=== PATIENT | female | born 1955 | race Caucasian/White ===

== ENCOUNTER 2017-02-07 03:40 | Inpatient (IN) | payer OTHER ==
[~2017-02-07] VITALS: Ht 165.1 cm; Wt 82.7 kg
[2017-02-07] VITALS (7 sets, daily range): BP systolic 115–123; BP diastolic 73–81; PULSE 74–111; RESP 18; TEMP 98; Ht 165.1 cm; Wt 82.7 kg
[2017-02-07] MEDS ORDERED: ONDANSETRON 4 MG INJ IV STA (04:10)
[2017-02-07] MEDS ORDERED: SOD CHLORIDE 0.9% 1,000 ML IV STA (04:10)
[2017-02-07] MEDS ORDERED: morphine 2 MG INJ IV STA (04:10)
[2017-02-07] MEDS ORDERED: SOTA80TA PO (04:25)
[2017-02-07] MEDS ORDERED: SOTA120T PO (04:25)
[2017-02-07] MEDS ORDERED: LISI10TA2 PO (04:27)
[2017-02-07] MEDS ORDERED: APIX5TAB PO (04:27)
[2017-02-07] MEDS ORDERED: FLUO10TA PO ×2 (04:28→04:31)
[2017-02-07] MEDS ORDERED: AMLO5TAB4 PO (04:28)
[2017-02-07] MEDS ORDERED: GLIM1TAB PO (04:29)
[2017-02-07] MEDS ORDERED: FLUO10CA66 PO (04:30)
[2017-02-07 04:31] LABS: ADD SCAN DIFF NO
[2017-02-07 04:48] LABS: ALBUMIN 4.4 g/dl (3.3-4.9); CHLORIDE 106 mmol/L (97-110)
[2017-02-07 04:49] LABS: POTASSIUM 3.1 mmol/L (3.5-5.1); SODIUM 139 mmol/L (135-144)
[2017-02-07 04:51] LABS: ALBUMIN/GLOBULIN RATIO 0.95; ANION GAP 18 (8-16); ASPARTATE AMINO TRANSFERASE 35 IU/L (15-46); BASOPHILS % 0.5 % (0.0-2.0); BILIRUBIN,INDIRECT 0.7 mg/dl (0-1.1); BILIRUBIN,TOTAL 0.7 mg/dl (0.2-1.3); CARBON DIOXIDE 18 mmol/L (21-31); CREATININE 1.27 mg/dl (0.44-1.00); EOSINOPHILS % 0.1 % (0.0-7.0); HEMATOCRIT 48.8 % (37.0-47.0); LYMPHOCYTES # 3.1 10^3/ul (0.8-2.9); LYMPHOCYTES % 37.8 % (15.0-51.0); MEAN CORPUSCULAR HGB CONC 34.8 g/dl (32.0-37.0); MEAN CORPUSCULAR VOLUME 89.1 fl (82.0-101.0); MEAN PLATELET VOLUME 10.6 fl (7.4-10.4); MONOCYTE # 0.7 10^3/ul (0.3-0.9); MONOCYTES % 8.9 % (0.0-11.0); NEUTROPHIL # 4.3 10^3/ul (1.6-7.5); NEUTROPHILS % 52.5 % (39.0-77.0); PLATELET COUNT 291 10^3/UL (140-415); RED BLOOD COUNT 5.48 10^6/ul (4.20-5.40); RED CELL DISTRIBUTION WIDTH 13.3 % (11.5-14.5); WHITE BLOOD COUNT 8.2 10^3/ul (4.8-10.8)
[2017-02-07 04:52] LABS: ALANINE AMINOTRANSFERASE 37 IU/L (13-69); ALKALINE PHOSPHATASE 118 IU/L (42-121); BLOOD UREA NITROGEN 15 mg/dl (7-20); CALCIUM 9.3 mg/dl (8.4-10.2); GLUCOSE 192 mg/dl (70-220)
[2017-02-07 05:10] LABS: TROPONIN-I < 0.012 ng/ml (0.00-0.12)
--- NOTE | 2017-02-07 05:49 | RADRPT ---
PROCEDURE: Chest. CLINICAL INDICATION: Chest pain. TECHNIQUE: Single frontal view of the chest was obtained. COMPARISON: None. FINDINGS: The cardiac silhouette is enlarged. The aortic arch is unremarkable. There is no focal consolidati on, vascular congestion or pleural effusion. There is no pneumothorax. IMPRESSION: Mild cardiomegaly. .Rob Tate MD, Date Time Electronically viewed and signed by .Rob Tate MD, on 02/07/2017 05:48 .T/
[2017-02-07] MEDS ORDERED: POTASSIUM CHLORIDE (SR) 20 MEQ TAB PO ONE (06:11)
--- NOTE | 2017-02-07 06:31 | RADRPT ---
PROCEDURE: CT Abdomen and pelvis without contrast. CLINICAL INDICATION: Abdominal Pain TECHNIQUE: CT scan of the abdomen and pelvis without contrast was performed on a multidetector hig h-resolution CT scan. . Coronal and sagittal reformatted images were obtained from the axial [facility] e images. Standard CT scan of the abdomen pelvis without contrast protocols were performed. The total exam CTDI equals 17.69 mGy and the total exam DLP equals 998.15 mGy-cm. One or more of the following dose reduction techniques were used: - Automated exposure control. - Adjustment of the mA and/or kV according to patient size. Use of iterative reconstruction technique. COMPARISON: None. FINDINGS: There are numerous calcified gallstones. No evidence of gallbladder wall thickening or pericholecys tic fluid. Negative for biliary ductal dilation. The liver spleen pancreas adrenal glands and kidneys are unremarkable. No hydronephrosis bilaterall y. The urinary bladder is unremarkable. The stomach, small bowel, large bowel and appendix are unremarkable. Negative for intra-abdominal f ree air fluid abscesses or lymphadenopathy. There is atherosclerosis of the abdominal aorta but no aneurysm. Chronic changes at the lung bases. There is degenerative changes lower thoracic and lumbar spine. 2.3 cm expansile mass involving the left S2 spinal canal consistent with a sacral dural cyst. No osteoblastic/osteolytic lesions or acu te fractures. IMPRESSION: 1. Numerous calcified gallstones without gallbladder wall thickening, pericholecystic fluid or bili chad ductal dilation. 2. 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 3. No evidence of calcified urinary calculi or obstructive uropathy. 4. No gastrointestinal disease, intra-abdominal free air fluid or lymphadenopathy. RPTAT:AAJJ Physician Elda Date Time Electronically viewed and signed by Physician Elda on 02/07/2017 06:31 BM/
[2017-02-07] MEDS ORDERED: SOD CHLORIDE 0.9% 1,000 ML IV ONE (07:00)
--- NOTE | 2017-02-07 07:25 | ERA ---
ER Documentation Chief Complaint Date/Time DATE: 02/07/17 TIME: 07:09 Chief Complaint epgastric pain x 3 days, vomiing, diarrhea HPI Comes emergency room for 3 days of epigastric pain as well as vomiting and diarrhea. She is also feeling generalized weakness with no focal weakness. Pain is described as a sharp pain does not radiate. The diarrhea is copious and watery with no bleeding. She has not been able to hold anything down for a couple of days now. She does have a history of A. fib and is currently taking sotalol and Eliquis. Denies chest pain. ROS All systems reviewed and are negative except as per history of present illness. Medications Home Meds Reported Medications Fluoxetine Hcl* (Prozac*) 10 Mg Tablet, 10 MG PO DAILY, TAB 02/07/17 Glimepiride* (Amaryl*) 1 Mg Tablet, 5 MG PO WITH BREAKFAST, TAB 02/07/17 Amlodipine Besylate* (Norvasc*) 5 Mg Tablet, 5 MG PO DAILY, TAB 02/07/17 Lisinopril* (Lisinopril*) 10 Mg Tablet, 10 MG PO DAILY, #30 TAB 02/07/17 Apixaban* (Eliquis*) 5 Mg Tablet, 5 MG PO DAILY, TAB 02/07/17 Sotalol Hcl* (Sotalol Hcl*) 80 Mg Tablet, 40 MG PO BID, TAB TAKE 1/2 TAB EVERY MORNING AND EVENING 02/07/17 Discontinued Reported Medications Fluoxetine Hcl* (Prozac*) 10 Mg Capsule, 10 MG PO DAILY, CAP 02/07/17 Fluoxetine Hcl* (Fluoxetine Hcl*) 10 Mg Tablet, 10 MG PO DAILY, TAB 02/07/17 Sotalol Hcl* (Sotalol Hcl*) 120 Mg Tablet, 120 MG PO TK 1/2 TAB QAM & QPM, TAB 02/07/17 Allergies Allergies: Coded Allergies: aspirin (Verified Allergy, Unknown, 02/07/17) codeine (Verified Allergy, Unknown, 02/07/17) PMhx/Soc History of Surgery: Yes (C SECTION, HYSTERECTOMY) Anesthesia Reaction: No Hx Neurological Disorder: No Hx Respiratory Disorders: No Hx Cardiac Disorders: Yes (HTN) Hx Psychiatric Problems: No Hx Miscellaneous Medical Probl: Yes (DM) Hx Alcohol Use: No Hx Substance Use: No Hx Tobacco Use: No Smoking Status: Never smoker Physical Exam Vitals Vital Signs Date Time Temp Pulse Resp B/P Pulse Ox O2 Delivery O2 Flow Rate FiO2 02/07/17 06:30 83 18 110/76 98 Room Air 02/07/17 04:10 97.8 102 20 100/67 98 Room Air 02/07/17 03:44 97.8 89 20 81/57 98 Physical Exam Const: [] Mild to moderate distress, appears uncomfortable Head: Atraumatic Eyes: Normal Conjunctiva ENT: Normal External Ears, Nose and Mouth. Dry mucous membranes of the mouth. Neck: Full range of motion..~ No meningismus. Resp: Clear to auscultation bilaterally Cardio: Irregularly irregular tachycardia no murmurs Abd: Soft, moderate epigastric tenderness without guarding or rebound, non distended. Normal bowel sounds Skin: No petechiae or rashes Ext: No cyanosis, or edema Neur: Awake and alert and oriented 3, no focal deficit Psych: Normal Mood and Affect Result Diagram: 02/07/17 0415 02/07/17 0415 Results 24 hrs Laboratory Tests Test 02/07/17 04:15 White Blood Count 8.210^3/ul Red Blood Count 5.4810^6/ul Hemoglobin 17.0g/dl Hematocrit 48.8% Mean Corpuscular Volume 89.1fl Mean Corpuscular Hemoglobin 31.0pg Mean Corpuscular Hemoglobin Concent 34.8g/dl Red Cell Distribution Width 13.3% Platelet Count 53543^3/UL Mean Platelet Volume 10.6fl Neutrophils % 52.5% Lymphocytes % 37.8% Monocytes % 8.9% Eosinophils % 0.1% Basophils % 0.5% Nucleated Red Blood Cells % 0.0/100WBC Neutrophils # 4.310^3/ul Lymphocytes # 3.110^3/ul Monocytes # 0.710^3/ul Eosinophils # 0.010^3/ul Basophils # 0.010^3/ul Nucleated Red Blood Cells # 0.010^3/ul Sodium Level 139mmol/L Potassium Level 3.1mmol/L Chloride Level 106mmol/L Carbon Dioxide Level 18mmol/L Anion Gap 18 Blood Urea Nitrogen 15mg/dl Creatinine 1.27mg/dl Glucose Level 192mg/dl Lactic Acid Level 1.4mmol/L Calcium Level 9.3mg/dl Total Bilirubin 0.7mg/dl Direct Bilirubin 0.00mg/dl Indirect Bilirubin 0.7mg/dl Aspartate Amino Transf (AST/SGOT) 35IU/L Alanine Aminotransferase (ALT/SGPT) 37IU/L Alkaline Phosphatase 118IU/L Troponin I < 0.012ng/ml Total Protein 9.0g/dl Albumin 4.4g/dl Globulin 4.60g/dl Albumin/Globulin Ratio 0.95 Lipase 141U/L Current Medications Medications (Trade) Dose Ordered Sig/Leonardo Route PRN Reason Start Time Stop Time Status Last Admin Dose Admin Sodium Chloride (NS) 1,000 ml @ 1,000 mls/hr Q1H STAT IV 02/07/17 04:10 02/07/17 05:09 DC 02/07/17 04:32 Morphine Sulfate (morphine) 2 mg ONCE STAT IV 02/07/17 04:10 02/07/17 04:12 DC Ondansetron HCl (Zofran Inj) 4 mg ONCE STAT IV 02/07/17 04:10 02/07/17 04:12 DC 02/07/17 04:32 Potassium Chloride 40 meq 40 meq ONCE ONCE PO 02/07/17 06:11 02/07/17 06:12 DC 02/07/17 06:51 Sodium Chloride (NS) 1,000 ml @ 1,000 mls/hr Q1H ONCE IV 02/07/17 07:00 02/07/17 07:59 02/07/17 07:31 Procedures/MDM Moderate to severe dehydration following gastroenteritis and causing cardiac arrhythmia and acute renal failure. Patient was initially in A. fib with RVR and rate in the 120s and 130s. She had physical exam signs of significant dehydration as well as a history of diarrhea and vomiting administered IV fluid which slowly corrected the RVR without need for vasoactive agents. Laboratories certainly supported the diagnosis of significant dehydration as the patient had hemoconcentration as well as low bicarbonate level, decreased potassium and renal insufficiency. She been administered morphine and Zofran which helped her nausea and pain however she still felt very weak. Her heart rate will usually controlled does occasionally over 100 still. Patient does not feel that she is strong enough to go home yet and I would agree that she would benefit from admission. She will be admitted to the panel team and I spoke with Dr. Cantu regarding the admission. EKG interpretation: A. fib with RVR rate of 118, normal axis, no ST or T-wave changes concerning for acute ischemia. Overall A. fib with RVR surveillance system monitor interpretation: Atrial fibrillation with RVR followed by rate controlled A. fib following fluid administration and pain control. Chest x-ray interpretation: I see no acute process. I see no widened mediastinum, no pneumothorax, no pulmonary edema, no fractures CT abdomen pelvis interpretation: Gallstones without evidence of obstruction, no pericystic colic fluid, no dilated ducts, no gallbladder wall thickening. I also see no intestinal obstruction, no free air and no fractures Critical care time 36 minutes: This includes management of A. fib with RVR in a severely dehydrated patient with acute kidney injury avoiding the use of vasoactive medications and carefully administering fluid, multiple visits the patient's bedside to reassess status and need for more invasive management, chart review, discussion with admitting doctor, discussion with patient and patient's family. This does not include any billable procedures. Departure Diagnosis: Primary Impression: Dehydration Additional Impressions: Atrial fibrillation with RVR Gastroenteritis Biliary colic Acute kidney injury Hypokalemia Condition: Serious HOMERO MIRANDA DO February 07, 2017 07:20
[2017-02-07] MEDS ORDERED: ONDANSETRON 4 MG INJ IV PRN ×2 (08:00→14:30)
[2017-02-07] MEDS ORDERED: ACETAMINOPHEN 325 MG TAB PO PRN (08:00)
[2017-02-07] MEDS ORDERED: APIXABAN 5 MG TABLET PO SCH (15:00)
--- NOTE | 2017-02-07 15:09 | HP ---
DATE OF ADMISSION: 02/07/2017 REASON FOR ADMISSION: Nausea, vomiting, decreased p.o. intake. HISTORY OF PRESENT ILLNESS: This is a pleasant 61-year-old lady with a history of atrial fibrillati on, status post cardioversion in the past, came in for decreased p.o. intake, nausea, vomiting and d iarrhea for the past 3 days. Upon further questioning, her daughter states that several household m embers have had recent gastroenteritis and this patient is now the last individual in the house to h ave these symptoms. No hemoptysis, no hematemesis, no blood per rectum. She remains stable. PAST MEDICAL HISTORY: Includes atrial fibrillation, diabetes mellitus. MEDICATIONS: As an outpatient include: 1. Prozac 10 mg daily. 2. Glimepiride 5 mg p.o. daily. 3. Amlodipine 5 mg p.o. daily. 4. Lisinopril 10 mg p.o. daily. 5. Eliquis 5 mg p.o. daily. 6. Sotalol 40 mg p.o. b.i.d. ALLERGIES: 1. ASPIRIN. 2. CODEINE. SOCIAL HISTORY: She is a nonsmoker, no alcohol, no history of drug use. Lives with her family, is otherwise independent in ADLs. FAMILY HISTORY: Noncontributory. REVIEW OF SYSTEMS: A 12-point review of systems was negative other than that mentioned above. PHYSICAL EXAMINATION: GENERAL: Well-nourished, well-developed lady, comfortable at rest, no acute distress. VITAL SIGNS: Currently afebrile, pulse is 100, blood pressure 110/60, O2 saturation 96% on room air . NECK: Supple. No JVD or lymphadenopathy. CARDIAC: S1, S2, no added sounds or murmurs. CHEST: Diminished air entry bilaterally, but no rales or wheezes. ABDOMEN: Soft, nontender. No guarding or rebound. EXTREMITIES: No cyanosis, clubbing, edema. NEUROLOGIC: Grossly intact. No focal deficits. DIAGNOSTIC DATA: Ultrasound of the abdomen showed numerous calcified gallstones, but no gallbladder wall thickening or duct dilatation. A chest x-ray was reviewed, showed mild cardiomegaly. LABORATORY DATA: White count 8.2, hemoglobin 17, platelets of 291. Sodium 139, potassium 3.1, bica rbonate 17, creatinine 1.27. Troponin was negative. IMPRESSION: 1. Dehydration with hypokalemia. 2. Gastroenteritis with significant nausea and vomiting. 3. History of atrial fibrillation on current medications, currently rate controlled. 4. History of depression. PLAN: 1. Continue hydration, IV fluids. 2. Antiemetics. 3. Continue outpatient medications, including selected beta varsha and Eliquis. 4. Advance diet as tolerated. Hopefully, patient should be stable for discharge tomorrow. Dictated By: ALEXX TATE/LAUREN Conf#: [id number] DID#: [id number]
[2017-02-07] MEDS: LISINOPRIL 10 MG TAB PO SCH (15:59)
[2017-02-07] MEDS: SOD CHLORIDE 0.9% 1,000 ML IV SCH (16:02)
[2017-02-07] MEDS: AMLODIPINE 5 MG TAB PO SCH (16:02)
[2017-02-07] MEDS ORDERED: POTASSIUM CHLORIDE 250 ML IVPB ONE (16:30)
[2017-02-07] MEDS: FLUOXETINE 10 MG CAP PO SCH (17:35)
[2017-02-07] MEDS: SOTALOL 80 MG TAB PO SCH (21:36)
[2017-02-08] VITALS (10 sets, daily range): BP systolic 102–127; BP diastolic 66–84; PULSE 75–90; RESP 18–20
[2017-02-08] MEDS ORDERED: PANTOPRAZOLE 40 MG INJ IV SCH (06:00)
[2017-02-08 07:00] LABS: ADD SCAN DIFF NO
[2017-02-08 07:08] LABS: BASOPHILS % 0.5 % (0.0-2.0); EOSINOPHILS % 0.3 % (0.0-7.0); HEMATOCRIT 41.5 % (37.0-47.0); HEMOGLOBIN 14.2 g/dl (12.0-16.0); LYMPHOCYTES # 2.9 10^3/ul (0.8-2.9); LYMPHOCYTES % 50.2 % (15.0-51.0); MEAN CORPUSCULAR HEMOGLOBIN 30.4 pg (29.0-33.0); MEAN CORPUSCULAR HGB CONC 34.2 g/dl (32.0-37.0); MEAN CORPUSCULAR VOLUME 88.9 fl (82.0-101.0); MEAN PLATELET VOLUME 10.2 fl (7.4-10.4); MONOCYTE # 0.5 10^3/ul (0.3-0.9); MONOCYTES % 9.2 % (0.0-11.0); NEUTROPHIL # 2.3 10^3/ul (1.6-7.5); NEUTROPHILS % 39.5 % (39.0-77.0); PLATELET COUNT 237 10^3/UL (140-415); RED BLOOD COUNT 4.67 10^6/ul (4.20-5.40); RED CELL DISTRIBUTION WIDTH 13.6 % (11.5-14.5); WHITE BLOOD COUNT 5.9 10^3/ul (4.8-10.8)
[2017-02-08 07:35] LABS: CALCIUM 8.3 mg/dl (8.4-10.2); CREATININE 0.74 mg/dl (0.44-1.00); MAGNESIUM 1.8 mg/dl (1.7-2.5); PHOSPHORUS 2.5 mg/dl (2.5-4.9); POTASSIUM 3.8 mmol/L (3.5-5.1)
[2017-02-08] MEDS ORDERED: GLIMEPIRIDE 2 MG TAB PO SCH (08:00)
[2017-02-08] MEDS ORDERED: Discontinue Glyburide, Glipizide, and/or Glimepiride prior to starting Insulin XX ONE (08:30)
[2017-02-08] MEDS: SOD CHLORIDE 0.9% 1,000 ML IV SCH ×2 (08:30→12:10)
[2017-02-08] MEDS ORDERED: HYPOGLYCEMIA PROTOCOL when Glucose is <70 mg/dL or symptomatic <90 mg/dL. XX ONE (08:30)
[2017-02-08] MEDS: FLUOXETINE 10 MG CAP PO SCH (08:58)
[2017-02-08] MEDS: AMLODIPINE 5 MG TAB PO SCH (08:59)
[2017-02-08] MEDS: LISINOPRIL 10 MG TAB PO SCH (08:59)
[2017-02-08] MEDS: SOTALOL 80 MG TAB PO SCH (08:59)
[2017-02-08] MEDS ORDERED: DEXTROSE 50% 50 ML SYRINGE IV PRN ×2 (09:00)
[2017-02-08] MEDS ORDERED: GLUCOSE GEL 15 GRAM TUBE BUCCAL PRN (09:00)
[2017-02-08] MEDS ORDERED: GLUCAGON 1 MG INJ IM PRN (09:00)
[2017-02-08] MEDS ORDERED: GLUCOSE GEL 15 GRAM TUBE PO PRN ×2 (09:00)
[2017-02-08] MEDS: INSULIN ASPART [NOVOLOG] 3 ML PEN SC SCH ×2 (12:00→17:49)
--- NOTE | 2017-02-08 14:44 | DS ---
Date/Time of Note Date/Time of Note DATE: 02/08/17 TIME: 14:40 Discharge Summary Admission/Discharge Info Admit Date/Time February 07, 2017 at 07:38 Discharge Date/Time Final Diagnosis 1. Acute gastroenteritis, likely viral, improved 2. Dehydration, improved 3. Chronic atrial fibrillation, controlled rate on eliquis 4. History of depression. Patient Condition: Stable Hospital Course This is a pleasant 61-year-old lady with a history of atrial fibrillation, status post cardioversion in the past, came in for decreased p.o. intake, nausea , vomiting and diarrhea for the past 3 days. No abdominal pain, no fever or chills. Upon further questioning, her daughter states that several household members have had recent gastroenteritis and this patient is now the last individual in the house to have these symptoms. No hemoptysis, no hematemesis, no blood per rectum. Patient is treated with IVF for dehydration from GI loss. Symptoms improved. She tolerates diet. She is discharged with stable condition and follow up with PCP outpatient. Home Meds Reported Medications Fluoxetine Hcl* (Prozac*) 10 Mg Tablet, 10 MG PO DAILY, TAB 02/07/17 Glimepiride* (Amaryl*) 1 Mg Tablet, 5 MG PO WITH BREAKFAST, TAB 02/07/17 Amlodipine Besylate* (Norvasc*) 5 Mg Tablet, 5 MG PO DAILY, TAB 02/07/17 Lisinopril* (Lisinopril*) 10 Mg Tablet, 10 MG PO DAILY, #30 TAB 02/07/17 Apixaban* (Eliquis*) 5 Mg Tablet, 5 MG PO DAILY, TAB 02/07/17 Sotalol Hcl* (Sotalol Hcl*) 80 Mg Tablet, 40 MG PO BID, TAB TAKE 1/2 TAB EVERY MORNING AND EVENING 02/07/17 Discontinued Reported Medications Fluoxetine Hcl* (Prozac*) 10 Mg Capsule, 10 MG PO DAILY, CAP 02/07/17 Fluoxetine Hcl* (Fluoxetine Hcl*) 10 Mg Tablet, 10 MG PO DAILY, TAB 02/07/17 Sotalol Hcl* (Sotalol Hcl*) 120 Mg Tablet, 120 MG PO TK 1/2 TAB QAM & QPM, TAB 02/07/17 Follow-up Plan PCP in one week Pending Labs Laboratory Tests Test 02/08/17 06:46 02/08/17 08:37 02/08/17 12:09 White Blood Count 5.910^3/ul (4.8-10.8) Red Blood Count 4.6710^6/ul (4.20-5.40) Hemoglobin 14.2g/dl (12.0-16.0) Hematocrit 41.5% (37.0-47.0) Mean Corpuscular Volume 88.9fl (82.0-101.0) Mean Corpuscular Hemoglobin 30.4pg (29.0-33.0) Mean Corpuscular Hemoglobin Concent 34.2g/dl (32.0-37.0) Red Cell Distribution Width 13.6% (11.5-14.5) Platelet Count 95678^3/UL (140-415) Mean Platelet Volume 10.2fl (7.4-10.4) Neutrophils % 39.5% (39.0-77.0) Lymphocytes % 50.2% (15.0-51.0) Monocytes % 9.2% (0.0-11.0) Eosinophils % 0.3% (0.0-7.0) Basophils % 0.5% (0.0-2.0) Nucleated Red Blood Cells % 0.0/100WBC (0.0-0.0) Neutrophils # 2.310^3/ul (1.6-7.5) Lymphocytes # 2.910^3/ul (0.8-2.9) Monocytes # 0.510^3/ul (0.3-0.9) Eosinophils # 0.010^3/ul (0.0-0.5) Basophils # 0.010^3/ul (0.0-0.1) Nucleated Red Blood Cells # 0.010^3/ul (0.0-0.0) Sodium Level 140mmol/L (135-144) Potassium Level 3.8mmol/L (3.5-5.1) Chloride Level 115mmol/L (97-110) Carbon Dioxide Level 20mmol/L (21-31) Anion Gap 9 (8-16) Blood Urea Nitrogen 9mg/dl (7-20) Creatinine 0.74mg/dl (0.44-1.00) Glucose Level 108mg/dl (70-220) Hemoglobin A1c 7.2% (0-5.9) Calcium Level 8.3mg/dl (8.4-10.2) Phosphorus Level 2.5mg/dl (2.5-4.9) Magnesium Level 1.8mg/dl (1.7-2.5) Bedside Glucose 96mg/dL (70-220) 100mg/dL (70-220) JANNETH BOSE MD February 08, 2017 14:43
[2017-02-09] MEDS ORDERED: ACCU-CHEK XX SCH (02:00)
[2017-02-09] MEDS ORDERED: PANTOPRAZOLE (EC) 40 MG TAB PO SCH (06:00)
== END 2017-02-08 18:22 | disposition home or self-care (01) | DRG 392 ==
LOC: E/R 03:40 → MS4 07:38
PROVIDERS: ADMIT Family Medicine; ATTEND Family Medicine
DX: K52.9 Noninfective gastroenteritis and colitis, unspecified (principal); I48.2 Chronic atrial fibrillation; F32.9 Major depressive disorder, single episode, unspecified; E86.0 Dehydration
CPT/HCPCS: 36415; 71010; 74176; 80048; 80053; 82962; 83036; 83605; 83690; 83735; 84100; 84484; 85025; 87075; 93005; 96374; C9113; J1815; J2270; J2405; J3480; J7030